=== PATIENT | female | born 1985 | race Caucasian/White ===

== ENCOUNTER 2017-04-24 09:47 | Emergency (ER) | payer MEDICAID ==
[~2017-04-24] VITALS: Ht 152.4 cm; Wt 120.3 kg
[2017-04-24 11:25] VITALS: BP 134/79
== END 2017-04-24 11:25 | disposition home or self-care (01) ==
LOC: ED 09:47
DX: R51 Headache (principal); R11.0 Nausea; R03.0 Elevated blood-pressure reading, without diagnosis of hypertension
CPT/HCPCS: J0780; J1885

== ENCOUNTER 2019-03-23 10:46 | Emergency (ER) | payer MEDICAID ==
[~2019-03-23] VITALS: Ht 160 cm; Wt 117.9 kg
[2019-03-23 10:53] VITALS: Ht 160 cm; Wt 117.9 kg
[2019-03-23 14:18] VITALS: BP 128/82
== END 2019-03-23 14:18 | disposition home or self-care (01) ==
LOC: ED 10:46
DX: G43.909 Migraine, unspecified, not intractable, without status migrainosus (principal); E66.01 Morbid (severe) obesity due to excess calories; Z68.42 Body mass index [BMI] 45.0-49.9, adult
CPT/HCPCS: 82962; J3030

== ENCOUNTER 2019-11-19 11:59 | Emergency (ER) | payer OTHER ==
[~2019-11-19] VITALS: Ht 154.9 cm; Wt 116.1 kg
[2019-11-19 13:11] LABS: BASOPHIL % 0.4 % (0-2); PLATELET COUNT 171 x10^3mcL (130-400); RED CELL DISTRIBUTION WIDTH 12.7 % (11.5-14.5)
[2019-11-19 14:15] LABS: ALKALINE PHOSPHATASE 58 U/L (46-116); ALT/SGPT 50 U/L (14-59); AST/SGOT 14 U/L (15-37); BILIRUBIN TOTAL 0.27 mg/dL (0.20-1.00); CALCIUM 8.7 mg/dL (8.5-10.1); CARBON DIOXIDE 27.3 mmol/L (21-32); CHLORIDE SERUM 103 mmol/L (98-107); CREATININE SERUM 0.5 mg/dL (0.6-1.0); GFR1 > 60 mL/min; GLUCOSE SERUM 103 mg/dL (74-106); POTASSIUM SERUM 3.6 mmol/L (3.5-5.1); SODIUM SERUM 138 mmol/L (136-145); TOTAL PROTEIN, SERUM 7.1 g/dL (6.4-8.2)
[2019-11-19 14:29] LABS: ALBUMIN 3.3 g/dL (3.4-5.0)
[2019-11-19 15:47] VITALS: BP 136/72
== END 2019-11-19 15:38 | disposition home or self-care (01) ==
LOC: ED 11:59
PROVIDERS: Emergency Medicine
DX: O21.0 Mild hyperemesis gravidarum (principal); Z3A.12 12 weeks gestation of pregnancy
CPT/HCPCS: J2405; J7030